=== PATIENT | female | born 1995 | race Caucasian/White ===

== ENCOUNTER 2016-09-25 17:34 | Emergency (ER) | payer MEDICAID ==
[~2016-09-25 17:34] MED LIST: PREN-96 PO
[2016-09-25 18:02] VITALS: BP 104/67
[2016-09-25 18:37] LABS: Basophils # (auto) 0 uL; Basophils % (auto) 0.3 % (0.0-2.0); DEFINITIVE VIEW TRANSMISSION; Eosinophils # (auto) 0 uL; Hematocrit 39.8 % (36.0-46.0); Hemoglobin 12.8 g/dL (12.2-16.2); Lymphocytes # (auto) 1.5 uL; Lymphocytes % (auto) 9.4 % (10.0-50.0); Mean Corpuscular Hemoglobin 24.4 pg (28.0-32.0); Mean Corpuscular Volume 76.3 fL (80.0-100.0); Mean Platelet Volume 7.5 fL (7.4-10.4); Monocytes # (auto) 0.4 uL; Monocytes % (auto) 2.5 % (0.0-12.0); Neutrophils % (auto) 87.8 % (37.0-80.0); Platelet Count (auto) 433 10^3/uL (140-450); White Blood Cell 15.9 10^3/uL (4.4-10.8)
[2016-09-25 18:40] LABS: Urine Bilirubin Negative (Negative); Urine Blood Negative /uL (Negative); Urine Color Yellow (Yellow); Urine Glucose Normal (Normal); Urine Ketone Negative (Negative); Urine RBC 1 /hpf (0 - 4); Urine Squamous Epithelial Cell FEW /hpf (<5); Urine Urobilinogen Normal (Negative)
[2016-09-25 18:41] LABS: Urine Nitrite POSITIVE (Negative)
[2016-09-25 18:59] LABS: Albumin 3.8 g/dL (3.4-5.0); BUN/Creatinine Ratio 18.8; Bilirubin, Total 0.3 mg/dL (0.2-1.0); Calcium 9.3 mg/dL (8.5-10.1); Magnesium 2.4 mg/dL (1.6-2.6); Potassium 3.9 mmol/L (3.5-5.1); Total Protein 7.8 g/dL (6.4-8.2)
== END 2016-09-25 23:53 | disposition left against medical advice (07) ==
LOC: ER 17:45
DX: R10.9 Unspecified abdominal pain (principal); R11.10 Vomiting, unspecified; Z53.21 Procedure and treatment not carried out due to patient leaving prior to being seen by health care provider
CPT/HCPCS: 36415; 80053; 81001; 83735; 85025

== ENCOUNTER 2016-12-11 09:41 | Emergency (ER) | payer MEDICAID ==
[~2016-12-11] VITALS: Ht 160 cm; Wt 52.2 kg
[2016-12-11 10:32] LABS: Basophils # (auto) 0 uL; Basophils % (auto) 0.3 % (0.0-2.0); DEFINITIVE VIEW TRANSMISSION; Eosinophils # (auto) 0 uL; Eosinophils % (auto) 0.1 % (0.0-7.0); Hematocrit 38.8 % (36.0-46.0); Hemoglobin 12.6 g/dL (12.2-16.2); Lymphocytes # (auto) 1.8 uL; Lymphocytes % (auto) 15.2 % (10.0-50.0); Mean Corpuscular Hemoglobin 26.2 pg (28.0-32.0); Mean Corpuscular Hgb Conc. 32.5 g/dL (32.0-36.0); Mean Corpuscular Volume 80.7 fL (80.0-100.0); Mean Platelet Volume 8.2 fL (7.4-10.4); Monocytes # (auto) 0.8 uL; Monocytes % (auto) 6.3 % (0.0-12.0); Neutrophils # (auto) 9.3 uL; Neutrophils % (auto) 78.1 % (37.0-80.0); Platelet Count (auto) 394 10^3/uL (140-450); Red Cell Distribution Width 18.4 % (11.6-16.0); White Blood Cell 11.9 10^3/uL (4.4-10.8)
[2016-12-11 10:44] LABS: Albumin 3.9 g/dL (3.4-5.0); BUN/Creatinine Ratio 21.4; Calcium 8.7 mg/dL (8.5-10.1); Potassium 3.9 mmol/L (3.5-5.1)
[2016-12-11 10:47] LABS: Bilirubin, Total 0.4 mg/dL (0.2-1.0); Total Protein 8.6 g/dL (6.4-8.2)
[2016-12-11 11:00] LABS: Urine Bilirubin Negative (Negative); Urine Blood Negative /uL (Negative); Urine Color Yellow (Yellow); Urine Glucose Normal (Normal); Urine Ketone TRACE (Negative); Urine Mucus MODERATE (None Seen); Urine RBC 1 /hpf (0 - 4); Urine Squamous Epithelial Cell FEW /hpf (<5); Urine Urobilinogen Normal (Negative)
[2016-12-11 11:03] LABS: Urine Nitrite POSITIVE (Negative)
[2016-12-11 13:28] VITALS: BP 100/68
== END 2016-12-11 13:50 | disposition left against medical advice (07) ==
LOC: ER 09:41
DX: R10.9 Unspecified abdominal pain (principal); R11.10 Vomiting, unspecified; Z53.21 Procedure and treatment not carried out due to patient leaving prior to being seen by health care provider
CPT/HCPCS: 36415; 80053; 81001; 81025; 82962; 85025; G0434

== ENCOUNTER 2024-02-06 20:26 | Emergency (ER) | payer MEDICAID, OTHER ==
[~2024-02-06] VITALS: Ht 157.5 cm; Wt 64.0 kg
[2024-02-06 21:22] LABS: Urine Amorphous Crystal FEW /hpf (None Seen); Urine Bacteria FEW /hpf (None Seen); Urine Blood 3+ /uL (Negative); Urine Clarity Turbid (Clear); Urine Color Light-Orange (Yellow); Urine Mucus MODERATE (None Seen); Urine Protein, UAD TRACE (Negative); Urine Specific Gravity 1.019 (1.001-1.035); Urine Urobilinogen Normal (Negative); Urine WBC 18 /hpf (0 - 5); Urine pH 5.5 (5.0-9.0)
[2024-02-06] MEDS ORDERED: CIPR-173 PO (21:33)
[2024-02-06 23:24] VITALS: BP 107/67; PULSE 107; RESP 20; TEMP 98.5; O2SAT 96
[2024-02-06] MEDS: CIPROFLOXACIN HCL 500 MG TAB PO ONE (23:24)
== END 2024-02-06 23:27 | disposition home or self-care (01) ==
LOC: ER 20:26
DX: N39.0 Urinary tract infection, site not specified (principal); Z32.02 Encounter for pregnancy test, result negative
CPT/HCPCS: 81001; 81025

== ENCOUNTER 2024-11-17 05:25 | Inpatient (IN) | payer MEDICAID, OTHER ==
[~2024-11-17] VITALS: Ht 157.5 cm; Wt 62.5 kg
[~2024-11-17 05:25] MED LIST changes: +CIPR-173 PO
--- NOTE | 2024-11-17 05:46 | ED.PDOC ---
History of Present Illness HPI Comments 29 y/o F, with a history of UTI's and polysubstance abuse, presents with c/o of diffused chest-wall and abdominal pain, intermittently, for the past 2x days, today. She denies any shortness of breath, palpitations, nausea, vomiting, fever, chills, or other associated symptoms or modifiers at this time. Chief Complaint: Chest Pain Time Seen by MD: 05:40 Reviewed Notes: Nurses Notes, Medications, Allergies Allergies: Coded Allergies: NO KNOWN ALLERGIES (Unverified , 04/26/16) Home Meds Active Scripts Ciprofloxacin Hcl (Cipro) 500 Mg Tab, 1 TAB PO BID, #14 TAB Prov:REBECCA ACOSTA MD 02/06/24 Reported Medications Vit W/ Ferrous Fumara ( One Daily) Daily Tab, 1 TAB PO DAILY, #90 TAB 3 Refills 04/24/16 Information Source: Patient Mode of Arrival: Ambulatory Severity: Moderate Timing: Days Duration: Intermittent Prehospital treatment: None Past Medical History PAST MEDICAL HISTORY: UTI'S Surgical History: Denies all surgeries TOP INVENTORY CONTROL EXECUTIVE History: No Pertinent TOP INVENTORY CONTROL EXECUTIVE History Family History Family History: Unknown Social History Smoker: Non-Smoker Alcohol: Occasionally Drugs: Marijuana, Methamphetamine, Other Lives In: Home Cardiovascular: reports: chest pain Gastrointestinal: reports: abdominal pain All Other Systems: Reviewed and Negative (negative unless othewise stated above or in HPI) Physical Exam General Appearance: Mild Distress, Obese HEENT: Normal ENT Inspection, Pharynx Normal, TMs Normal Neck: Full Range of Motion, Non-Tender, Normal, Normal Inspection Respiratory: Chest Non-Tender, Lungs Clear, No Accessory Muscle Use, No Respiratory Distress, Normal Breath Sounds Cardiovascular: No Edema, No JVD, No Murmur, No Gallop, Normal Peripheral Pulses, Regular Rate/Rhythm Breast Exam: Deferred Gastrointestinal: LLQ (tenderness ), No Organomegaly, No Pulsatile Mass, Normal Bowel Sounds, RLQ (tenderness ), Soft, Tenderness (bilateral lower quadrant tenderness ) Genitalia: Deferred Pelvic: Deferred Rectal: Deferred Extremities: No calf tenderness, Normal capillary refill, Normal inspection, Normal range of motion, Non-tender, No pedal edema Musculoskeletal : Apperance: Normal Neurologic: Alert, keyseater operator II-XII nml as Tested, No Motor Deficits, Normal Affect, Normal Mood, No Sensory Deficits Cerebellar Function: Normal Reflexes: Normal Skin: Dry, Normal Color, Warm Lymphatic: No Adenopathy Was a procedure done? Was a procedure done?: No EKG EKG : [place]: Normal Cardiac Rhythm: NSR Block: None Hypertrophy: None ST: Normal Differential Dx Considerations may include: PA, ACS, PE, angina, anxiety, musculoskeletal pain, gastritis, gastroenteritis X-Ray, Labs, Meds, VS Vital Signs Date Time Temp Pulse Resp B/P (MAP) Pulse Ox O2 Delivery O2 Flow Rate FiO2 11/17/24 07:06 83 17 123/83 11/17/24 06:36 104 20 117/73 11/17/24 06:30 98.4 104 19 117/73 (88) 98 98.4 11/17/24 06:30 104 19 98 Room Air 11/17/24 05:30 98.4 109 18 123/73 (90) 99 11/17/24 05:30 95 Lab Test 11/17/24 07:04 11/17/24 05:54 11/17/24 05:36 Range/Units Troponin I High Sensitivity < 3 L < 3 L </=34 ng/L White Blood Count 15.0 H 4.4-10.8 10^3/uL Red Blood Count 4.33 4.0-5.20 10^6/uL Hemoglobin 12.1 L 12.2-16.2 g/dL Hematocrit 36.8 36.0-46.0 % Mean Corpuscular Volume 85.0 80.0-100.0 fL Mean Corpuscular Hemoglobin 27.9 L 28.0-32.0 pg Mean Corpuscular Hemoglobin Concent 32.9 32.0-36.0 g/dL Red Cell Distribution Width 12.9 11.8-14.3 % Platelet Count 314 140-450 10^3/uL Mean Platelet Volume 7.2 6.9-10.8 fL Neutrophils (%) (Auto) 76.8 37.0-80.0 % Lymphocytes (%) (Auto) 15.9 10.0-50.0 % Monocytes (%) (Auto) 6.9 0.0-12.0 % Eosinophils (%) (Auto) 0.1 0.0-7.0 % Basophils (%) (Auto) 0.3 0.0-2.0 % Neutrophils # (Auto) 11.5 H 1.6-8.6 10 ^3/uL Lymphocytes # (Auto) 2.4 0.4-5.4 10 ^3/uL Monocytes # (Auto) 1.0 0-1.3 10 ^3/uL Eosinophils # (Auto) 0 0-0.8 10 ^3/uL Basophils # (Auto) 0.1 0-0.2 10 ^3/uL Nucleated Red Blood Cells 0.1 % Sodium Level 137 136-145 mmol/L Potassium Level 4.2 3.5-5.1 mmol/L Chloride Level 100 98-107 mmol/L Carbon Dioxide Level 29 20-31 mmol/L Anion Gap 8 5-15 Blood Urea Nitrogen 13 9-23 mg/dL Creatinine 0.64 0.550-1.02 mg/dL Glomerular Filtration Rate Calc 121 >90 mL/min BUN/Creatinine Ratio 20.3 H 10.0-20.0 Serum Glucose 94 74-106 mg/dL Calcium Level 10.6 H 8.7-10.4 mg/dL Total Bilirubin 0.7 0.2-1.0 mg/dL Aspartate Amino Transferase (AST) 13 13-40 U/L Alanine Aminotransferase (ALT) 35 7-40 U/L Alkaline Phosphatase 88 46-116 U/L Total Protein 7.2 5.7-8.2 g/dL Albumin 5.0 H 3.2-4.8 g/dL Lipase 25 12-53 U/L Urine Color Light-orange Yellow Urine Clarity Ex.turbid Clear Urine pH 6.5 5.0-9.0 Urine Specific [place] 1.027 1.001-1.035 Urine Protein Trace H Negative Urine Ketones Negative Negative Urine Blood 2+ H Negative /uL Urine Nitrite 1+ H Negative Urine Bilirubin Negative Negative Urine Urobilinogen Normal Negative mg/dL Urine Leukocyte Esterase 3+ Negative /uL Urine RBC 6 0 - 4 /hpf Urine Microscopic WBC 34 H 0-5 /HPF Urine Squamous Epithelial Cells Many <5 /hpf Urine Amorphous Crystals Few None Seen /hpf Urine Bacteria Many H None Seen /hpf Urine Mucus Few None Seen Urine Glucose Normal Normal mg/dL Urine Test Negative Negative Current Medications Medications (Trade) Dose Ordered Sig/Larissa Route Start Time Stop Time Status Last Admin Ondansetron HCl (Zofran) 4 mg ONCE ONCE IV 11/17/24 05:45 11/17/24 05:46 DC 11/17/24 06:35 Sodium Chloride 1,000 ml @ 1,000 mls/hr Q1H ONCE IVB 11/17/24 05:45 11/17/24 06:44 DC 11/17/24 06:32 Morphine Sulfate 4 mg ONCE ONCE IV 11/17/24 05:45 11/17/24 05:46 DC 11/17/24 06:36 Time of 1ST Reevaluation: 06:10 Reevaluation 1ST: Unchanged Patient Education/Counseling: Diagnosis, Treatment Family Education/Counseling: No Family Present Departure 1 Departure Time of Disposition: 08:31 (Patient presented with abdominal pain that was concerning for possible appendicits, gastritis, cholecystitis, colitis, gastroenteritis, sbo, or orther possible surgical emergency. Data: 1. I ordered and reviewed the result of at least 3 labs including a CBC, BMP, and Urinalysis. 2. I independently interpreted the following tests: CT Abdoment and Pelvis is concerning for ovarian cysts .Risk:This patient has a high risk of morbidity due to further diagnostic testing or treatment and may suffer from an acute abdominal process disorder. Workup reveals ovarian cysts and intractable abdominal pain and patient should be admitted for further workup. and possible expert consultation. ) Impression: Primary Impression: Intractable abdominal pain Additional Impression: Ovarian cyst Qualified Codes: N83.202 - Unspecified ovarian cyst, left side Disposition: ADMITTED INPATIENT Admit to: Med Surg Condition: Serious Critical Care Note Critical Care Time?: No Stability Stability form required: No Heart Score Heart Score: Heart Score Response (Comments) Value History N/A 0 EKG N/A 0 Age N/A 0 Risk Factors N/A 0 Troponin N/A 0 Total 0 I personally scribed for CORTEZ ADRIAN MD ([email or web address]) on 11/17/24 at 05:46. Electronically submitted by Jovanni Beltran ([email or web address]). CORTEZ ADRIAN MD Nov 17, 2024 05:46 JANESSA SHAIKH MD Nov 17, 2024 08:33
[2024-11-17 06:01] LABS: Urine Amorphous Crystal FEW /hpf (None Seen); Urine Bacteria MANY /hpf (None Seen); Urine Blood 2+ /uL (Negative); Urine Clarity Ex.Turbid (Clear); Urine Color Light-Orange (Yellow); Urine Mucus FEW (None Seen); Urine Protein, UAD TRACE (Negative); Urine Specific Gravity 1.027 (1.001-1.035); Urine Squamous Epithelial Cell MANY /hpf (<5); Urine Urobilinogen Normal (Negative); Urine WBC 34 /HPF (0-5); Urine pH 6.5 (5.0-9.0)
[2024-11-17] MEDS: IOHEXOL 300 MG/ML 100ML BOTTLE IJ ONE (06:02)
[2024-11-17 06:31] LABS: Basophils # (auto) 0.1 10 ^3/uL (0-0.2); Basophils % (auto) 0.3 % (0.0-2.0); Eosinophils # (auto) 0 10 ^3/uL (0-0.8); Eosinophils % (auto) 0.1 % (0.0-7.0); Hematocrit 36.8 % (36.0-46.0); Hemoglobin 12.1 g/dL (12.2-16.2); Lymphocytes # (auto) 2.4 10 ^3/uL (0.4-5.4); Lymphocytes % (auto) 15.9 % (10.0-50.0); Mean Corpuscular Hemoglobin 27.9 pg (28.0-32.0); Mean Corpuscular Hgb Conc. 32.9 g/dL (32.0-36.0); Monocytes % (auto) 6.9 % (0.0-12.0); Neutrophils # (auto) 11.5 10 ^3/uL (1.6-8.6); Neutrophils % (auto) 76.8 % (37.0-80.0); Nucleated Red Blood Cells % 0.1 %; Platelet Count (auto) 314 10^3/uL (140-450); Red Blood Cells 4.33 10^6/uL (4.0-5.20); Red Cell Distribution Width 12.9 % (11.8-14.3)
[2024-11-17] MEDS: SODIUM CHLORIDE 0.9% 1,000 ML IVB ONE (06:32)
[2024-11-17] MEDS: ONDANSETRON HCL 4 MG/2 ML VIAL IV ONE (06:35)
[2024-11-17] MEDS: MORPHINE SULFATE 4 MG/ML SYR/VIAL IV ONE (06:36)
[2024-11-17 06:44] LABS: Alanine Aminotransferase 35 U/L (7-40); Alkaline Phosphatase 88 U/L (46-116); Anion Gap 8 (5-15); Aspartate Aminotransferase 13 U/L (13-40); BUN/Creatinine Ratio 20.3 (10.0-20.0); Blood Urea Nitrogen 13 mg/dL (9-23); Carbon Dioxide 29 mmol/L (20-31); Chloride 100 mmol/L (98-107); Glucose 94 mg/dL (74-106); Lipase 25 U/L (12-53); Potassium 4.2 mmol/L (3.5-5.1); Sodium 137 mmol/L (136-145)
[2024-11-17 06:45] LABS: Bilirubin, Total 0.7 mg/dL (0.2-1.0); Total Protein 7.2 g/dL (5.7-8.2)
[2024-11-17 06:52] LABS: Calcium 10.6 mg/dL (8.7-10.4)
--- NOTE | 2024-11-17 07:07 | DVH ---
EXAM: CT Chest, Abdomen and Pelvis With Intravenous Contrast CLINICAL INDICATION: abd pain, chest pain severe TECHNIQUE: Axial computed tomography images of the chest, abdomen and pelvis with intravenous contra st. This CT exam was performed using one or more of the following dose reduction techniques: automa annia exposure control, adjustment of the mA and/or kV according to patient size, and/or use of iterati ve reconstruction technique. CONTRAST: COMPARISON: None FINDINGS: CHEST: LUNGS AND PLEURAL SPACES: Unremarkable. No mass. No consolidation. No significant effusion. No pneumothorax. HEART: Unremarkable. No cardiomegaly. No significant pericardial effusion. No significant faye ry artery calcifications. ABDOMEN: LIVER: A few hypodense lesion in the right hepatic lobe, too small to characterize, likely cysts. Hepatomegaly with fatty infiltration. GALLBLADDER AND BILE DUCTS: Unremarkable. No calcified stones. No ductal dilation. PANCREAS: Unremarkable. No ductal dilation. No mass. SPLEEN: Unremarkable. No splenomegaly. ADRENALS: Unremarkable. No mass. KIDNEYS AND URETERS: Unremarkable. No hydronephrosis. No solid mass. STOMACH AND BOWEL: Fecal retention in the colon consistent with constipation. No obstruction. No mucosal thickening. PELVIS: APPENDIX: No findings to suggest acute appendicitis. BLADDER: Unremarkable. No mass. REPRODUCTIVE: Multiple hypodense lesions of the left and right adnexa, largest measuring up to 5.0 cm. Differential includes ovarian cysts, ovarian torsion or hydrosalpinx. Further evaluation with pel jayro ultrasound is recommended. CHEST, ABDOMEN and PELVIS: INTRAPERITONEAL SPACE: Unremarkable. No significant fluid collection. No free air. BONES/JOINTS: Unremarkable. No acute fracture. No dislocation. SOFT TISSUES: Umbilical hernia containing fat. VASCULATURE: Unremarkable. No aortic aneurysm. LYMPH NODES: Unremarkable. No enlarged lymph nodes. OTHER FINDINGS: . None. . IMPRESSION: 1. Multiple hypodense lesions of the left and right adnexa, largest measuring up to 5.0 cm. Differen tial includes ovarian cysts, ovarian torsion or hydrosalpinx. Further evaluation with pelvic ultrasou nd is recommended. 2. Hepatomegaly with fatty infiltration. 3. Umbilical hernia containing fat. 4. Fecal retention in the colon consistent with constipation.
--- NOTE | 2024-11-17 07:22 | ECG ---
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
--- NOTE | 2024-11-17 08:22 | DVH ---
INDICATION: per radiology TECHNIQUE: Multiple real-time grayscale transabdominal and TV sonographic images along with color an d duplex Doppler of the uterus and ovaries were obtained. COMPARISON: 11-17-24 FINDINGS: The uterus measures 9 x 4 x 6 cm. The endometrial stripe measures 1.7 cm. The right ovary measures 4 x 3 x 3 cm. The left ovary measures 7 x 5 x 5 cm. 6 cm left ovarian cyst. Subsequent color and duplex Doppler interrogation of the ovaries demonstrated symmetric vascular flow to both ovaries, though this does not exclude the possibility of torsion due to the dual blood suppl y. IMPRESSION: 1. 6 cm left ovarian cyst. Gynecologic consultation
[2024-11-17] MEDS ORDERED: ONDANSETRON HCL 4 MG/2 ML VIAL IV PRN (09:15)
[2024-11-17] MEDS ORDERED: DOCUSATE SOD 100 MG CAP PO PRN (09:15)
[2024-11-17] MEDS ORDERED: ACETAMINOPHEN 325 MG TAB PO PRN (09:15)
[2024-11-17 09:42] VITALS: PULSE 110; RESP 16; O2SAT 95
[2024-11-17 09:44] LABS: Cannabinoid Screen, Urine Pos (NEGATIVE); Phencyclidine Screen, Urine Neg (NEGATIVE)
[2024-11-17 09:50] VITALS: BP 107/69; PULSE 88; RESP 18; TEMP 98.6; O2SAT 98
[2024-11-17 09:50] LABS: Amphetamine Screen, Urine Pos (NEGATIVE); Barbiturate Scree,Urine Neg (NEGATIVE); Benzodiazephine Screen, Urine Neg (NEGATIVE); Cocaine Screen, Urine Neg (NEGATIVE); Opiate Scree,Urine Neg (NEGATIVE)
[2024-11-17 09:52] VITALS: BP 107/69; PULSE 86; PULSE 88; RESP 18; TEMP 98.6; O2SAT 97; O2SAT 98
--- NOTE | 2024-11-17 10:18 | DVHHP2 ---
History of Present Illness Reason for Visit: Abdominal pain History of Present Illness Elaine Shaver is a 29-year-old female with no significant past medical history who comes in with complaints of abdominal pain. Patient states that the pain began about 3-4 days ago and continued to worsen causing her to come to the ER. She states the pain is in her left lower abdomen and radiates to her back. She also states that she smokes about a pack of cigarettes a day, does methamphetamine, fentanyl, and marijuana daily, last used this morning. Past Surgical History: None Smoke: 1 pack per day ALCOHOL: none Drugs: Marijuana, Other (Methamphetamine, fentanyl) Lives: Friends Review of Systems Constitutional: No: Fever, Chills, Sweats, Weakness, Malaise, Other Eyes: No: Pain, Vision change, Conjunctivae inflammation, Eyelid inflammation, Other, Redness ENT: No: Ear pain, Ear discharge, Nose pain, Nose discharge, Nose congestion, Mouth pain, Mouth swelling, Throat pain, Throat swelling, Other Respiratory: No: Cough, Dry, Shortness of breath, SOB with excertion, Wheezing, Hemoptysis, Pleuritic Pain, Sputum, Wheezing, Other Cardiovascular: No: Chest Pain, Palpitations, Orthopnea, Paroxysmal Noc. Dyspnea, Edema, Lt Headedness, Other Gastrointestinal: Nausea, Abdominal Pain (LLQ); No: Vomiting, Diarrhea, Constipation, Melena, Hematochezia, Other Genitourinary: No Dysuria, No Frequency, No Incontinence, No Hematuria, No Retention, No Other Musculoskeletal: back pain; No: other, neck pain, shoulder pain, arm pain, hand pain, leg pain, foot pain Skin: No: Rash, Lesions, Jaundice, Bruising, Other Neurological: No: Weakness, Numbness, Incoordination, Change in speech, Confusion, Seizures, Other Allergies: Coded Allergies: NO KNOWN ALLERGIES (Unverified , 04/26/16) Medications Current Medications Medications Dose Ordered Sig/Larissa Route Start Time Stop Time Status Last Admin Dose Admin Acetaminophen/ Hydrocodone Bitart 1 tab Q4HP PRN PO 11/17/24 09:15 UNV Ondansetron HCl 4 mg Q4HP PRN IV 11/17/24 09:15 UNV Docusate Sodium 100 mg BIDPRN PRN PO 11/17/24 09:15 UNV Acetaminophen 650 mg Q6HP PRN PO 11/17/24 09:15 UNV Lorazepam 1 mg Q4HP PRN IV 11/17/24 09:15 UNV Exam Vital Signs Vital Signs Date Time Temp Pulse Resp B/P (MAP) Pulse Ox O2 Delivery O2 Flow Rate FiO2 11/17/24 07:06 83 17 123/83 11/17/24 06:30 98.4 98 98.4 11/17/24 06:30 Room Air General Appearance: Alert, Oriented X3, Cooperative, mild distress HEENT: Atraumatic, PERRLA Respiratory: Clear to auscultation, Normal air movement Cardiovascular: Regular rate, Normal S1, Normal S2, No murmurs Abdominal: Normal bowel sounds, Soft, No tenderness Extremities: No clubbing, No cyanosis, No edema, Normal pulses Skin: No rashes, No breakdown, No significant lesion Neuro: Normal gait, Normal speech, Strength at 5/5 X4 ext Psych/Mental Status: Mental status NL, Mood NL Labs/Xrays Labs Test 11/17/24 07:04 11/17/24 05:54 11/17/24 05:36 Range/Units Troponin I High Sensitivity < 3 L </=34 ng/L White Blood Count 15.0 H 4.4-10.8 10^3/uL Red Blood Count 4.33 4.0-5.20 10^6/uL Hemoglobin 12.1 L 12.2-16.2 g/dL Hematocrit 36.8 36.0-46.0 % Mean Corpuscular Volume 85.0 80.0-100.0 fL Mean Corpuscular Hemoglobin 27.9 L 28.0-32.0 pg Mean Corpuscular Hemoglobin Concent 32.9 32.0-36.0 g/dL Red Cell Distribution Width 12.9 11.8-14.3 % Platelet Count 314 140-450 10^3/uL Mean Platelet Volume 7.2 6.9-10.8 fL Neutrophils (%) (Auto) 76.8 37.0-80.0 % Lymphocytes (%) (Auto) 15.9 10.0-50.0 % Monocytes (%) (Auto) 6.9 0.0-12.0 % Eosinophils (%) (Auto) 0.1 0.0-7.0 % Basophils (%) (Auto) 0.3 0.0-2.0 % Neutrophils # (Auto) 11.5 H 1.6-8.6 10 ^3/uL Lymphocytes # (Auto) 2.4 0.4-5.4 10 ^3/uL Monocytes # (Auto) 1.0 0-1.3 10 ^3/uL Eosinophils # (Auto) 0 0-0.8 10 ^3/uL Basophils # (Auto) 0.1 0-0.2 10 ^3/uL Nucleated Red Blood Cells 0.1 % Sodium Level 137 136-145 mmol/L Potassium Level 4.2 3.5-5.1 mmol/L Chloride Level 100 98-107 mmol/L Carbon Dioxide Level 29 20-31 mmol/L Anion Gap 8 5-15 Blood Urea Nitrogen 13 9-23 mg/dL Creatinine 0.64 0.550-1.02 mg/dL Glomerular Filtration Rate Calc 121 >90 mL/min BUN/Creatinine Ratio 20.3 H 10.0-20.0 Serum Glucose 94 74-106 mg/dL Calcium Level 10.6 H 8.7-10.4 mg/dL Total Bilirubin 0.7 0.2-1.0 mg/dL Aspartate Amino Transferase (AST) 13 13-40 U/L Alanine Aminotransferase (ALT) 35 7-40 U/L Alkaline Phosphatase 88 46-116 U/L Total Protein 7.2 5.7-8.2 g/dL Albumin 5.0 H 3.2-4.8 g/dL Lipase 25 12-53 U/L Urine Color Light-orange Yellow Urine Clarity Ex.turbid Clear Urine pH 6.5 5.0-9.0 Urine Specific [place] 1.027 1.001-1.035 Urine Protein Trace H Negative Urine Ketones Negative Negative Urine Blood 2+ H Negative /uL Urine Nitrite 1+ H Negative Urine Bilirubin Negative Negative Urine Urobilinogen Normal Negative mg/dL Urine Leukocyte Esterase 3+ Negative /uL Urine RBC 6 0 - 4 /hpf Urine Microscopic WBC 34 H 0-5 /HPF Urine Squamous Epithelial Cells Many <5 /hpf Urine Amorphous Crystals Few None Seen /hpf Urine Bacteria Many H None Seen /hpf Urine Mucus Few None Seen Urine Glucose Normal Normal mg/dL Urine Test Negative Negative INDICATION: per radiology FINDINGS: The uterus measures 9 x 4 x 6 cm. The endometrial stripe measures 1.7 cm. The right ovary measures 4 x 3 x 3 cm. The left ovary measures 7 x 5 x 5 cm. 6 cm left ovarian cyst. Subsequent color and duplex Doppler interrogation of the ovaries demonstrated sy mmetric vascular flow to both ovaries, though this does not exclude the possibility of torsion due to the dual blood supply. IMPRESSION: 1. 6 cm left ovarian cyst. Gynecologic consultation EXAM: CT Chest, Abdomen and Pelvis With Intravenous Contrast CHEST: LUNGS AND PLEURAL SPACES: Unremarkable. No mass. No consolidation. No significant effusion. No pneumothorax. HEART: Unremarkable. No cardiomegaly. No significant pericardial effusion. No significant coronary artery calcifications. ABDOMEN: LIVER: A few hypodense lesion in the right hepatic lobe, too small to characterize, likely cysts. Hepatomegaly with fatty infiltration. GALLBLADDER AND BILE DUCTS: Unremarkable. No calcified stones. No ductal dilation. PANCREAS: Unremarkable. No ductal dilation. No mass. SPLEEN: Unremarkable. No splenomegaly. ADRENALS: Unremarkable. No mass. KIDNEYS AND URETERS: Unremarkable. No hydronephrosis. No solid mass. STOMACH AND BOWEL: Fecal retention in the colon consistent with constipation. No obstruction. No mucosal thickening. PELVIS: APPENDIX: No findings to suggest acute appendicitis. BLADDER: Unremarkable. No mass. REPRODUCTIVE: Multiple hypodense lesions of the left and right adnexa, largest measuring up to 5.0 cm. Differential includes ovarian cysts, ovarian torsion or hydrosalpinx. Further evaluation with pelvic ultrasound is recommended. CHEST, ABDOMEN and PELVIS: INTRAPERITONEAL SPACE: Unremarkable. No significant fluid collection. No free air. BONES/JOINTS: Unremarkable. No acute fracture. No dislocation. SOFT TISSUES: Umbilical hernia containing fat. VASCULATURE: Unremarkable. No aortic aneurysm. LYMPH NODES: Unremarkable. No enlarged lymph nodes. OTHER FINDINGS: . None. . IMPRESSION: 1. Multiple hypodense lesions of the left and right adnexa, largest measuring up to 5.0 cm. Differential includes ovarian cysts, ovarian torsion or hydrosalpinx. Further evaluation with pelvic ultrasound is recommended. 2. Hepatomegaly with fatty infiltration. 3. Umbilical hernia containing fat. 4. Fecal retention in the colon consistent with constipation. Assessment/Plan Assessment/Plan Assessment: Ovarian cyst, UTI, Umbical hernia, Constipation, Polysubstance abuse, Plan: Admit to Med-Surg, FLOUR MIXER HELPER consult, IV antibiotics, IV hydration, Pain management, Plan discussed with: Patient, Other (friend) My Orders Orders - SCHWING,CHAVA R OIL BOILER Procedure Category Date Status Time Drug Screen LAB 11/17/24 Logged 09:14 Admit ADMIT 11/17/24 Transmitted 09:15 Code Status CODE 11/17/24 Transmitted 09:15 Hydrocodone-Acet PHA 11/17/24 Logged 5/325mg Tab ([place]ace 09:15 Ondansetron Hcl PHA 11/17/24 Transmitted (Zofran) 09:15 Docusate Sodium PHA 11/17/24 Transmitted Capsule (Colace 09:15 Complete Blood Count LAB 11/18/24 Verified 04:00 Comprehensive LAB 11/18/24 Verified Metabolic Panel 04:00 Condition: Serious CLAUDIA 11/17/24 In Process 09:15 Acetaminophen Tablet PHA 11/17/24 Transmitted (Tylenol Tablet) 09:15 Lorazepam 2mg/Ml Inj PHA 11/17/24 Transmitted (Ativan Inj) 09:15 Ceftriaxone Ivpb PHA 11/18/24 Verified Rocephin 09:00 Ceftriaxone Ivpb PHA 11/17/24 Verified Rocephin 09:30 NS PHA 11/17/24 Verified 09:30 Date of Service: Nov 17, 2024 Billing Provider: CHAVA SULLIVAN Common Visit Codes: [id number] INP/OBS CARE (MOD) CHAVA SULLIVANP Nov 17, 2024 10:18
[2024-11-17] MEDS: SODIUM CHLORIDE 0.9% 1,000 ML IV ONE (10:48)
[2024-11-17] MEDS: cefTRIAXone 1GM/50ML D5W 50 ML IV ONE (10:49)
--- NOTE | 2024-11-17 12:38 | DVHINCON2 ---
Date of service: Nov 17, 2024 History of Present Illness MACARENA Shaver is a 29 y/o female patient with history of depression and polysubstance use disorder who presented to the ED after four days of generalized abdominal pain, radiated to lower back and chest, associated with vomiting X1 before admission. Patient denies fever, SOB, diarrhea or dizziness. She reports abdominal pain started a few years ago and since then it has been intermittent. She also reports occasional vaginal cloudy secretion, dyspareunia and heavy periods associated with cramps during the first couple of days. 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 Last vaginal delivery in 2016 Pap smear: two years ago. Unknown results No control Sexual partners: Two Home Meds Discontinued Reported Medications Vit W/ Ferrous Fumara ( One Daily) Daily Tab, 1 TAB PO DAILY, #90 TAB 3 Refills 04/24/16 Discontinued Scripts Ciprofloxacin Hcl (Cipro) 500 Mg Tab, 1 TAB PO BID, #14 TAB Prov:REBECCA ACOSTA MD 02/06/24 Chief Complaint of Abdominal/F: Abdominal pain, Vomiting, Left flank pain Onset/Duration of Abd/Flank Pa: 1 week Location of Abdominal Onset: LLQ, Epigastric Abdominal Pain Radiation: Epigastric, Back Activities of Onset of Abd/Fla: Activity Modifying Factors for Abd Pain: Antacids Timing of Abdominal Pain: Still present Abd/Flank Pain Exacerbated by: Movements Abd/Flank Pain Relieved by: Medication Past Medical History Cardiac: No pertinent Hx Pulmonary: No pertinent Hx Central Nervous System: No pertinent Hx GI: No pertinent Hx Hemotology/Oncology: No pertinent Hx Psychiatric: Depression Musculoskeletal: No pertinent Hx Rheumotologic: No pertinent Hx Infectious Disease: No peritnent Hx Renal/: UTI Endocrine: No pertinent Hx Dermatology: No pertinent Hx Past Surgical History: No pertinent Hx Family History: No pertinent Hx Patient Family History: Alcoholism Asthma Malignant neoplasm of ovary G8 MOTHER, Onset:25's - 30 Osteoporosis Smoker: Positive Alocohol: None Drugs: Marijuana, Amphetimines Domestic Violence: Neg Review of Systems Constitutional: No symptom reported Ears, Nose, & Throat: No symptom reported Eyes: No symptom reported Pulmonary/Respiratory: No symptom reported Cardiovascular: No symptom reported Gastrointestinal: No symptom reported, Vomiting, Abdominal Pain Genitourinary: No symptom reported, Dysuria, Frequency Musculoskeletal: No symptom reported Skin: No symptom reported Psychiatric: No symptom reported Endocrine: No symptom reported Hemotologic/Lymphatic: No symptom reported H&P Exam Vital Signs Vital Signs Date Time Temp Pulse Resp B/P (MAP) Pulse Ox O2 Delivery O2 Flow Rate FiO2 11/17/24 09:52 98.6 86 18 107/69 (82) 98 98.6 11/17/24 09:52 Room Air* 0 21 General Appeara: Well developed, Well nourished, Normal Appearance Head Exam: Normal inspection Neck Exam: Normal inspection, Non-tender, Normal alignment Eye Exam: bilateral eye Normal inspection, bilateral eye PERRL, bilateral eye EOMI Ear Exam: bilateral ear Auricle normal, bilateral ear Canal normal, bilateral ear TM normal Nasal Exam: Normal inspection Mouth: Normal Inspection Pulmonary/Respiratory: Normal inspection, Normal breath sounds Cardiovascular/Chest: Normal inspection, Regular rate, Normal Rhythm Abdominal Exam: Normal bowel sounds, Soft, No hepatospenomegaly, No masses Abdominal Pain Onset Location: LLQ, Suprapubic, Flank Back Exam: Normal inspection Pelvic Exam: Not done Hand Exam: Non-tender Hip exam: Normal inspection, Non-tender, Normal range of motion Legs: bilateral leg non-tender, bilateral leg normal inspection, bilateral leg normal range of motion, bilateral leg no evidence of injury Knees: bilateral knee non-tender, bilateral knee normal inspection, bilateral knee normal range of motion, bilateral knee no evidence of injury Ankle Exam: bilateral ankle Normal inspection, bilateral ankle Non-tender, bilateral ankle Normal range of motion, bilateral ankle No evidence of injury Foot: bilateral foot non-tender, bilateral foot normal inspection, bilateral foot normal range of motion, bilateral foot no evidence of injury Tendon/ Neuro: Normal sensation, Normal motor function, Normal tendon functions 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: Normal hearing, Normal speech, PERRL Motor/Sensory: Normal sensory function, Normal motor function, Negative Babinski's sign Deep Tendon Ref: All intact Neuro/Mental St: Alert, Oriented Appearance: Appropriate appearance, Appropriate insight Eye contact/ Speech: Cooperative, Good eye contact, Normal speech Coordination/Gait: Normal finger->nose, Normal gait, Negative Romberg's sign Skin Exam: Normal inspection, Normal color, Warm/dry Lymphatic: Normal inspection Labs/Xrays Labs Test 11/17/24 07:04 11/17/24 05:54 11/17/24 05:36 Range/Units Troponin I High Sensitivity < 3 L </=34 ng/L White Blood Count 15.0 H 4.4-10.8 10^3/uL Red Blood Count 4.33 4.0-5.20 10^6/uL Hemoglobin 12.1 L 12.2-16.2 g/dL Hematocrit 36.8 36.0-46.0 % Mean Corpuscular Volume 85.0 80.0-100.0 fL Mean Corpuscular Hemoglobin 27.9 L 28.0-32.0 pg Mean Corpuscular Hemoglobin Concent 32.9 32.0-36.0 g/dL Red Cell Distribution Width 12.9 11.8-14.3 % Platelet Count 314 140-450 10^3/uL Mean Platelet Volume 7.2 6.9-10.8 fL Neutrophils (%) (Auto) 76.8 37.0-80.0 % Lymphocytes (%) (Auto) 15.9 10.0-50.0 % Monocytes (%) (Auto) 6.9 0.0-12.0 % Eosinophils (%) (Auto) 0.1 0.0-7.0 % Basophils (%) (Auto) 0.3 0.0-2.0 % Neutrophils # (Auto) 11.5 H 1.6-8.6 10 ^3/uL Lymphocytes # (Auto) 2.4 0.4-5.4 10 ^3/uL Monocytes # (Auto) 1.0 0-1.3 10 ^3/uL Eosinophils # (Auto) 0 0-0.8 10 ^3/uL Basophils # (Auto) 0.1 0-0.2 10 ^3/uL Nucleated Red Blood Cells 0.1 % Sodium Level 137 136-145 mmol/L Potassium Level 4.2 3.5-5.1 mmol/L Chloride Level 100 98-107 mmol/L Carbon Dioxide Level 29 20-31 mmol/L Anion Gap 8 5-15 Blood Urea Nitrogen 13 9-23 mg/dL Creatinine 0.64 0.550-1.02 mg/dL Glomerular Filtration Rate Calc 121 >90 mL/min BUN/Creatinine Ratio 20.3 H 10.0-20.0 Serum Glucose 94 74-106 mg/dL Calcium Level 10.6 H 8.7-10.4 mg/dL Total Bilirubin 0.7 0.2-1.0 mg/dL Aspartate Amino Transferase (AST) 13 13-40 U/L Alanine Aminotransferase (ALT) 35 7-40 U/L Alkaline Phosphatase 88 46-116 U/L Total Protein 7.2 5.7-8.2 g/dL Albumin 5.0 H 3.2-4.8 g/dL Lipase 25 12-53 U/L Urine Color Light-orange Yellow Urine Clarity Ex.turbid Clear Urine pH 6.5 5.0-9.0 Urine Specific [place] 1.027 1.001-1.035 Urine Protein Trace H Negative Urine Ketones Negative Negative Urine Blood 2+ H Negative /uL Urine Nitrite 1+ H Negative Urine Bilirubin Negative Negative Urine Urobilinogen Normal Negative mg/dL Urine Leukocyte Esterase 3+ Negative /uL Urine RBC 6 0 - 4 /hpf Urine Microscopic WBC 34 H 0-5 /HPF Urine Squamous Epithelial Cells Many <5 /hpf Urine Amorphous Crystals Few None Seen /hpf Urine Bacteria Many H None Seen /hpf Urine Mucus Few None Seen Urine Glucose Normal Normal mg/dL Urine Test Negative Negative Urine Opiates Screen Neg NEGATIVE Urine Fentanyl Screen Pos NEGATIVE Urine Barbiturates Screen Neg NEGATIVE Urine Phencyclidine Screen Neg NEGATIVE Urine Amphetamines Screen Pos NEGATIVE Urine Benzodiazepines Screen Neg NEGATIVE Urine Cocaine Screen Neg NEGATIVE Urine Cannabinoids Screen Pos NEGATIVE Assessment/Plan Admitting Diagnosis: 1. Acute Cystitis/ UTI 2. Acute LLQ pain 3. 6cm ovarian cyst (simple?) 4. Dysmenorrhe and dyspareunia Plan Imaging reviewed personally. US shows a mostly simple, unilocular 6cm NIRMALA cyst. Normal B/L doppler flow Exam shows tenderness in LLQ and epigastrium without any acute peritoneal signs, doubt acute torsion or adnexum/ovary Plan: Serial abdominal US, treat UTI with IV antibiotics, pain meds as needed. If unresponsive to medical treatment in 48-72hr consider laparoscopy. Preferred follow up for simple ovarian cysts < 10cm is conservative mgmt (O-Rads 2), with repeat imaging in 8-12 wk and outpatient follow up. We will follow up with you. Keep NPO Recommend STI screening as DDX also include hydro/pyosalpinx. Thank you for allowing us to participate in the care of this patient Plan discussed with: Patient Date of Service: Nov 17, 2024 Billing Provider: GARIBALDI,NIK G DO Common Visit Codes: CONSULT ONLY Consultation Codes: [id number] CONSULT <60MIN NIK ODEN DO Nov 17, 2024 12:38
[2024-11-17 13:00] VITALS: BP 105/55; PULSE 105; RESP 18; O2SAT 97
[2024-11-17 17:02] VITALS: BP 100/66; PULSE 86; RESP 18; TEMP 98; O2SAT 99
--- NOTE | 2024-11-17 17:17 | DVHPN2 ---
Subjective Progress Notes Subjective Patient feeling better. No current pain. Has not received pain medication since a.m. Denies fever. Patient is hungry and wants to "smoke" Objective PHYSICAL EXAM Physical Exam: Afeb VS stable Alert, comfortable in chair abdomen, non surgical abdomen on exam Vital Signs and I&O Vital Signs Date Time Temp Pulse Resp B/P (MAP) Pulse Ox O2 Delivery O2 Flow Rate FiO2 11/17/24 17:02 98.0 86 18 100/66 (77) 99 98.0 11/17/24 09:52 Room Air* 0 21 Lab results Laboratory Tests Test 11/17/24 05:36 11/17/24 05:54 11/17/24 07:04 Range/Units Urine Color Light-orange Yellow Urine Clarity Ex.turbid Clear Urine pH 6.5 5.0-9.0 Urine Specific [place] 1.027 1.001-1.035 Urine Protein Trace H Negative Urine Ketones Negative Negative Urine Blood 2+ H Negative /uL Urine Nitrite 1+ H Negative Urine Bilirubin Negative Negative Urine Urobilinogen Normal Negative mg/dL Urine Leukocyte Esterase 3+ Negative /uL Urine RBC 6 0 - 4 /hpf Urine Microscopic WBC 34 H 0-5 /HPF Urine Squamous Epithelial Cells Many <5 /hpf Urine Amorphous Crystals Few None Seen /hpf Urine Bacteria Many H None Seen /hpf Urine Mucus Few None Seen Urine Glucose Normal Normal mg/dL Urine Test Negative Negative Urine Opiates Screen Neg NEGATIVE Urine Fentanyl Screen Pos NEGATIVE Urine Barbiturates Screen Neg NEGATIVE Urine Phencyclidine Screen Neg NEGATIVE Urine Amphetamines Screen Pos NEGATIVE Urine Benzodiazepines Screen Neg NEGATIVE Urine Cocaine Screen Neg NEGATIVE Urine Cannabinoids Screen Pos NEGATIVE White Blood Count 15.0 H 4.4-10.8 10^3/uL Red Blood Count 4.33 4.0-5.20 10^6/uL Hemoglobin 12.1 L 12.2-16.2 g/dL Hematocrit 36.8 36.0-46.0 % Mean Corpuscular Volume 85.0 80.0-100.0 fL Mean Corpuscular Hemoglobin 27.9 L 28.0-32.0 pg Mean Corpuscular Hemoglobin Concent 32.9 32.0-36.0 g/dL Red Cell Distribution Width 12.9 11.8-14.3 % Platelet Count 314 140-450 10^3/uL Mean Platelet Volume 7.2 6.9-10.8 fL Neutrophils (%) (Auto) 76.8 37.0-80.0 % Lymphocytes (%) (Auto) 15.9 10.0-50.0 % Monocytes (%) (Auto) 6.9 0.0-12.0 % Eosinophils (%) (Auto) 0.1 0.0-7.0 % Basophils (%) (Auto) 0.3 0.0-2.0 % Neutrophils # (Auto) 11.5 H 1.6-8.6 10 ^3/uL Lymphocytes # (Auto) 2.4 0.4-5.4 10 ^3/uL Monocytes # (Auto) 1.0 0-1.3 10 ^3/uL Eosinophils # (Auto) 0 0-0.8 10 ^3/uL Basophils # (Auto) 0.1 0-0.2 10 ^3/uL Nucleated Red Blood Cells 0.1 % Sodium Level 137 136-145 mmol/L Potassium Level 4.2 3.5-5.1 mmol/L Chloride Level 100 98-107 mmol/L Carbon Dioxide Level 29 20-31 mmol/L Anion Gap 8 5-15 Blood Urea Nitrogen 13 9-23 mg/dL Creatinine 0.64 0.550-1.02 mg/dL Glomerular Filtration Rate Calc 121 >90 mL/min BUN/Creatinine Ratio 20.3 H 10.0-20.0 Serum Glucose 94 74-106 mg/dL Calcium Level 10.6 H 8.7-10.4 mg/dL Total Bilirubin 0.7 0.2-1.0 mg/dL Aspartate Amino Transferase (AST) 13 13-40 U/L Alanine Aminotransferase (ALT) 35 7-40 U/L Alkaline Phosphatase 88 46-116 U/L Troponin I High Sensitivity < 3 L < 3 L </=34 ng/L Total Protein 7.2 5.7-8.2 g/dL Albumin 5.0 H 3.2-4.8 g/dL Lipase 25 12-53 U/L Assessment and Plan ASSESSMENT AND PLAN Assessment and Plan Ovarian cyst 6cm left Abdominal / pelvic pain, likely related to UTI plan; Recommend repeat CBC, STI panel labs ordered Ovarian tumor markers ordered NO acute surgical supply assistant intervention indicated at this time. Patient can resume regular diet F/U outpatient in [facility] will sign off. My orders: Orders - GARIBALDI,NIK G DO Npo Except For Medications (11/17/24 10:22) Npo (Nothing By Mouth) Diet (11/17/24 Lunch) Complete Blood Count (11/17/24 16:17) Chlamydia/Gc Amplification (11/17/24 16:18) RPR (11/17/24 16:18) Hepatitis C Antibody (11/17/24 16:18) Hepatitis B Surface Antigen (11/17/24 16:18) Hiv 1&2 Antibody (11/17/24 16:18) Urine Bacterial Culture (11/17/24 16:18) Cancer Antigen (Ca) 125 (11/17/24 16:26) Carcinoembryonic Antigen (11/17/24 16:26) Afp Serum Tumor Marker (11/17/24 16:26) Lactate Dehydrogenase (11/17/24 16:26) Beta Hcg, Quantitative (11/17/24 16:26) Regular Diet (11/17/24 Dinner) Plan discussed with: Patient Visit Coding OBGYN Date of Service: Nov 17, 2024 Billing Provider: NIK ODEN DO THREAD REELER Common Visit Codes: CONSULTATION ONLY THREAD REELER Consultation Codes: [id number] INPATIENT CONSULT (MOD) NIK ODEN DO Nov 17, 2024 17:17
[2024-11-17 17:51] LABS: Basophils # (auto) 0 10 ^3/uL (0-0.2); Basophils % (auto) 0.2 % (0.0-2.0); Eosinophils # (auto) 0 10 ^3/uL (0-0.8); Eosinophils % (auto) 0.1 % (0.0-7.0); Hematocrit 34.6 % (36.0-46.0); Hemoglobin 11.5 g/dL (12.2-16.2); Lymphocytes # (auto) 2.3 10 ^3/uL (0.4-5.4); Lymphocytes % (auto) 22.1 % (10.0-50.0); Mean Corpuscular Hemoglobin 28.4 pg (28.0-32.0); Mean Corpuscular Hgb Conc. 33.3 g/dL (32.0-36.0); Mean Corpuscular Volume 85.3 fL (80.0-100.0); Monocytes # (auto) 0.9 10 ^3/uL (0-1.3); Monocytes % (auto) 8.3 % (0.0-12.0); Neutrophils # (auto) 7.4 10 ^3/uL (1.6-8.6); Neutrophils % (auto) 69.3 % (37.0-80.0); Platelet Count (auto) 295 10^3/uL (140-450); Red Blood Cells 4.05 10^6/uL (4.0-5.20); Red Cell Distribution Width 13.4 % (11.8-14.3); White Blood Cell 10.6 10^3/uL (4.4-10.8)
[2024-11-17 18:10] LABS: Beta HCG, Quantitative 0.4 mIU/mL (1.5-4.2)
[2024-11-17] MEDS: LORazepam 2MG/ML-1ML VIAL IV PRN (18:45)
[2024-11-17 21:00] VITALS: BP 101/64; PULSE 103; RESP 20; TEMP 98.6; O2SAT 100
[2024-11-18] MEDS: HYDROcodone-ACET 5/325MG TAB PO PRN (04:50)
[2024-11-18 05:00] VITALS: BP 100/56; PULSE 94; RESP 18; TEMP 98.2; O2SAT 97
[2024-11-18 07:09] LABS: Basophils # (auto) 0 10 ^3/uL (0-0.2); Basophils % (auto) 0.3 % (0.0-2.0); Eosinophils # (auto) 0 10 ^3/uL (0-0.8); Eosinophils % (auto) 0.3 % (0.0-7.0); Hematocrit 32.6 % (36.0-46.0); Hemoglobin 11.3 g/dL (12.2-16.2); Lymphocytes % (auto) 22.6 % (10.0-50.0); Mean Corpuscular Hemoglobin 29.4 pg (28.0-32.0); Mean Corpuscular Hgb Conc. 34.7 g/dL (32.0-36.0); Mean Corpuscular Volume 84.6 fL (80.0-100.0); Monocytes # (auto) 0.7 10 ^3/uL (0-1.3); Monocytes % (auto) 8.6 % (0.0-12.0); Neutrophils # (auto) 5.9 10 ^3/uL (1.6-8.6); Neutrophils % (auto) 68.2 % (37.0-80.0); Platelet Count (auto) 271 10^3/uL (140-450); Red Blood Cells 3.85 10^6/uL (4.0-5.20); Red Cell Distribution Width 13.6 % (11.8-14.3); White Blood Cell 8.7 10^3/uL (4.4-10.8)
[2024-11-18 07:21] LABS: Alanine Aminotransferase 33 U/L (7-40); Albumin 4.3 g/dL (3.2-4.8); Alkaline Phosphatase 83 U/L (46-116); Anion Gap 8 (5-15); Aspartate Aminotransferase 14 U/L (13-40); BUN/Creatinine Ratio 16.9 (10.0-20.0); Blood Urea Nitrogen 10 mg/dL (9-23); Calcium 9.6 mg/dL (8.7-10.4); Carbon Dioxide 25 mmol/L (20-31); Chloride 105 mmol/L (98-107); Potassium 3.8 mmol/L (3.5-5.1); Sodium 138 mmol/L (136-145)
[2024-11-18 07:22] LABS: Bilirubin, Total 0.5 mg/dL (0.2-1.0); Total Protein 6.5 g/dL (5.7-8.2)
[2024-11-18 07:36] LABS: Glucose 122 mg/dL (74-106)
[2024-11-18 08:30] VITALS: PULSE 96; RESP 17; O2SAT 95
[2024-11-18] MEDS: cefTRIAXone 1GM/50ML D5W 50 ML IV SCH (08:58)
[2024-11-18 09:36] VITALS: BP 95/54; PULSE 96; RESP 17; TEMP 98.3; O2SAT 95
[2024-11-18] MEDS ORDERED: CEPH500C PO (14:29)
--- NOTE | 2024-11-18 14:33 | DVHDS2 ---
Discharge Summary Date of Admission Nov 17, 2024 at 09:15 Date of Discharge: Nov 18, 2024 Labs/Diagnostic Data: Laboratory Results Test 11/18/24 05:51 11/17/24 16:50 11/17/24 16:18 11/17/24 07:04 White Blood Count 8.7 10^3/uL (4.4-10.8) Red Blood Count 3.85 10^6/uL (4.0-5.20) Hemoglobin 11.3 g/dL (12.2-16.2) Hematocrit 32.6 % (36.0-46.0) Mean Corpuscular Volume 84.6 fL (80.0-100.0) Mean Corpuscular Hemoglobin 29.4 pg (28.0-32.0) Mean Corpuscular Hemoglobin Concent 34.7 g/dL (32.0-36.0) Red Cell Distribution Width 13.6 % (11.8-14.3) Platelet Count 271 10^3/uL (140-450) Mean Platelet Volume 7.3 fL (6.9-10.8) Neutrophils (%) (Auto) 68.2 % (37.0-80.0) Lymphocytes (%) (Auto) 22.6 % (10.0-50.0) Monocytes (%) (Auto) 8.6 % (0.0-12.0) Eosinophils (%) (Auto) 0.3 % (0.0-7.0) Basophils (%) (Auto) 0.3 % (0.0-2.0) Neutrophils # (Auto) 5.9 10 ^3/uL (1.6-8.6) Lymphocytes # (Auto) 2.0 10 ^3/uL (0.4-5.4) Monocytes # (Auto) 0.7 10 ^3/uL (0-1.3) Eosinophils # (Auto) 0 10 ^3/uL (0-0.8) Basophils # (Auto) 0 10 ^3/uL (0-0.2) Nucleated Red Blood Cells 0.0 % Sodium Level 138 mmol/L (136-145) Potassium Level 3.8 mmol/L (3.5-5.1) Chloride Level 105 mmol/L (98-107) Carbon Dioxide Level 25 mmol/L (20-31) Anion Gap 8 (5-15) Blood Urea Nitrogen 10 mg/dL (9-23) Creatinine 0.59 mg/dL (0.550-1.02) Glomerular Filtration Rate Calc 123 mL/min (>90) BUN/Creatinine Ratio 16.9 (10.0-20.0) Serum Glucose 122 mg/dL (74-106) Calcium Level 9.6 mg/dL (8.7-10.4) Total Bilirubin 0.5 mg/dL (0.2-1.0) Aspartate Amino Transferase (AST) 14 U/L (13-40) Alanine Aminotransferase (ALT) 33 U/L (7-40) Alkaline Phosphatase 83 U/L (46-116) Total Protein 6.5 g/dL (5.7-8.2) Albumin 4.3 g/dL (3.2-4.8) Lactate Dehydrogenase 211 U/L (120-246) Carcinoembryonic Antigen 2.76 ng/mL (<=5.0) Beta HCG, Quantitative 0.4 mIU/mL (1.5-4.2) HIV (1&2) Antibody Negative (Negative) Troponin I High Sensitivity < 3 ng/L (</=34) Test 11/17/24 05:54 11/17/24 05:36 Lipase 25 U/L (12-53) Urine Color Light-orange (Yellow) Urine Clarity Ex.turbid (Clear) Urine pH 6.5 (5.0-9.0) Urine Specific [place] 1.027 (1.001-1.035) Urine Protein Trace (Negative) Urine Ketones Negative (Negative) Urine Blood 2+ /uL (Negative) Urine Nitrite 1+ (Negative) Urine Bilirubin Negative (Negative) Urine Urobilinogen Normal mg/dL (Negative) Urine Leukocyte Esterase 3+ /uL (Negative) Urine RBC 6 /hpf (0 - 4) Urine Microscopic WBC 34 /HPF (0-5) Urine Squamous Epithelial Cells Many /hpf (<5) Urine Amorphous Crystals Few /hpf (None Seen) Urine Bacteria Many /hpf (None Seen) Urine Mucus Few (None Seen) Urine Glucose Normal mg/dL (Normal) Urine Test Negative (Negative) Urine Opiates Screen Neg (NEGATIVE) Urine Fentanyl Screen Pos (NEGATIVE) Urine Barbiturates Screen Neg (NEGATIVE) Urine Phencyclidine Screen Neg (NEGATIVE) Urine Amphetamines Screen Pos (NEGATIVE) Urine Benzodiazepines Screen Neg (NEGATIVE) Urine Cocaine Screen Neg (NEGATIVE) Urine Cannabinoids Screen Pos (NEGATIVE) Other Laboratory Tests 11/18/24 05:51 Brief Hx & Hospital Course: Final diagnoses: Left ovarian cyst UTI Polysubstance abuse Dysmenorrhea Dyspareunia Umbilical hernia containing fat Hepatomegaly with fatty infiltration Constipation with fecal retention 29-year-old female who was admitted for abdominal pain CT scan of the abdomen showed left ovarian cyst Urinalysis showed UTI Found also showed a left ovarian cyst She was seen by OBGYN and was recommended for conservative management with outpatient follow up IV antibiotics were given for the UTI She can be discharged home on oral antibiotics for 5 days of cephalexin Follow up with purchasing associate as an outpatient Condition at Discharge: Stable Final Diagnosis/Problems List Left ovarian cyst UTI Discharge Disposition: Home SNF Discharge Will this Physician continue t: No Discharge Instruct/Medications Diet: Regular Activity: No Restrictions, As Tolerated Follow Up/Referral: Dr. Forbes as soon as possible Medications: Cephalexin 500 mg 3 times a day for 5 days Discharge Statement: "Patient was advised to return to the ER or call 911 if any headaches, dizziness, shortness of breath, chest pain, abdominal pain, bleeding, fevers, or worsening of medical condition. Patient was counseled about treatment plan, medications, possible side effects, patientverbalized understanding. All questions were answered to the best of my ability. This discharge took greater then 30 minutes in planning, reviewing documentation, counseling the patient, and discussing with other team members." ASSESSMENT ASSESSMENT Assessment Left ovarian cyst UTI Date of Service: Nov 18, 2024 Billing Provider: LEA JENSEN MD Common Visit Codes: [id number]-SGF/[id number] DISCH DAY >30min LEA JENSEN MD Nov 18, 2024 14:32
[2024-11-19 08:07] LABS: RPR Non Reactive (Non Reactive)
[2024-11-20 00:06] LABS: Chlamydia Trachomatis, NAA Negative (Negative); Neisseria gonorrhoeae, NAA Negative (Negative)
== END 2024-11-18 15:38 | disposition home or self-care (01) | DRG 463 ==
LOC: ER 05:25 → OVERFLOW 09:15 → EAST 21:00
PROVIDERS: ADMIT Internal Medicine Geriatric Medicine; ATTEND Internal Medicine Geriatric Medicine
DX: N30.00 Acute cystitis without hematuria (principal); K76.0 Fatty (change of) liver, not elsewhere classified; F12.90 Cannabis use, unspecified, uncomplicated; K59.00 Constipation, unspecified; N83.202 Unspecified ovarian cyst, left side; N94.10 Unspecified dyspareunia; N92.0 Excessive and frequent menstruation with regular cycle; N94.6 Dysmenorrhea, unspecified; K42.9 Umbilical hernia without obstruction or gangrene; F17.210 Nicotine dependence, cigarettes, uncomplicated; Z80.41 Family history of malignant neoplasm of ovary; Z82.5 Family history of asthma and other chronic lower respiratory diseases; Z82.62 Family history of osteoporosis; Z87.440 Personal history of urinary (tract) infections
CPT/HCPCS: 36415; 71260; 74177; 76856; 80053; 80307; 81001; 81025; 82105; 82378; 83615; 83690; 84484; 84702; 85025; 86304; 86592; 86703; 86803; 87086; 87340; 93005; 96361; 96365; 96375; G0378; J2405

== ENCOUNTER 2025-06-12 12:29 | Emergency (ER) | payer MEDICAID, OTHER ==
[~2025-06-12] VITALS: Ht 157.5 cm; Wt 54.5 kg
[~2025-06-12 12:29] MED LIST changes: +CEPH500C PO; -CIPR-173 PO; -PREN-96 PO
[2025-06-12] MEDS: LACTATED RINGER'S 1,000 ML IV ONE ×2 (12:50→13:40)
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
[2025-06-12 13:00] VITALS: PULSE 70; RESP 9; TEMP 97.9; O2SAT 99
[2025-06-12] MEDS: HYDROmorphone HCL 2 MG/ML VL/or syr IV ONE (13:33)
[2025-06-12] MEDS: ONDANSETRON HCL 4 MG/2 ML VIAL IV ONE (13:43)
[2025-06-12] MEDS: KETOROLAC TROMETH 30 MG/ML 1ML VIAL IV ONE (14:09)
[2025-06-12 15:00] VITALS: BP 122/78; PULSE 72; RESP 12; O2SAT 98
[2025-06-12] MEDS: SILVER SULFADIAZINE 1 % TOPICAL CREAM 50GM TOP ONE ×2 (15:09)
[2025-06-12] MEDS ORDERED: SILV1CRE82 TOP (15:46)
== END 2025-06-12 15:34 | disposition left against medical advice (07) ==
LOC: ER 12:29
DX: T22.292A Burn of second degree of multiple sites of left shoulder and upper limb, except wrist and hand, initial encounter (principal); T22.291A Burn of second degree of multiple sites of right shoulder and upper limb, except wrist and hand, initial encounter; Z87.440 Personal history of urinary (tract) infections; X08.8XXA Exposure to other specified smoke, fire and flames, initial encounter; Y93.89 Activity, other specified; Y92.89 Other specified places as the place of occurrence of the external cause; Y99.8 Other external cause status
CPT/HCPCS: 16020; 96361; 96374; 99283; J1885